=== PATIENT | female | born 2005 | race Caucasian/White ===

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

== ENCOUNTER 2024-08-02 19:15 | Emergency (ER) | payer OTHER, BC ==
[2024-08-02] MEDS ORDERED: Acetaminophen/Oxycodone 5 MG/325 MG TABLET PO ONE (19:25)
[2024-08-02] MEDS ORDERED: MELOXICAM15 MG PO (22:25)
== END 2024-08-02 22:52 | disposition home or self-care (01) ==
LOC: ED 19:15
DX: M79.604 Pain in right leg (principal); Z91.040 Latex allergy status; V43.62XA Car passenger injured in collision with other type car in traffic accident, initial encounter; Y93.89 Activity, other specified; Y92.410 Unspecified street and highway as the place of occurrence of the external cause; Y99.8 Other external cause status